=== PATIENT | male | born 1985 | race Caucasian/White ===

== ENCOUNTER 2019-06-19 08:18 | Emergency (ER) | payer OTHER ==
[~2019-06-19] VITALS: Ht 177.8 cm; Wt 163.3 kg
[2019-06-19] MEDS ORDERED: COZAAR50 MG (08:48)
[2019-06-19] MEDS ORDERED: FORTAMET1000 MG (08:49)
[2019-06-19] MEDS ORDERED: KETOROLAC TROME10 MG PO ×2 (10:00)
== END 2019-06-19 10:19 | disposition home or self-care (01) ==
LOC: ER 08:18
DX: S60.212A Contusion of left wrist, initial encounter (principal); W18.39XA Other fall on same level, initial encounter; Y93.89 Activity, other specified; Y92.098 Other place in other non-institutional residence as the place of occurrence of the external cause; Y99.8 Other external cause status

== ENCOUNTER 2021-09-01 07:05 | Outpatient (CLI) | payer OTHER ==
[~2021-09-01 07:05] MED LIST: COZAAR50 MG; FORTAMET1000 MG; KETOROLAC TROME10 MG PO
== END 2021-09-01 18:00 | disposition home or self-care (01) ==
LOC: LAB 07:05
DX: Z20.818 Contact with and (suspected) exposure to other bacterial communicable diseases (principal); Z20.828 Contact with and (suspected) exposure to other viral communicable diseases

== ENCOUNTER 2025-01-03 22:51 | Emergency (ER) | payer OTHER ==
[~2025-01-03] VITALS: Ht 177.8 cm; Wt 163.3 kg
[2025-01-03] MEDS ORDERED: METFORMIN HCL500 MG PO (23:45)
[2025-01-03] MEDS ORDERED: DIOVAN320 MG PO (23:45)
[2025-01-03] MEDS ORDERED: TOPROL XL50 M1 PO (23:46)
[2025-01-04] MEDS ORDERED: KETOROLAC TROMETHAMINE 60 MG VIAL IM STA (02:59)
[2025-01-04] MEDS ORDERED: DEXAMETHASONE 4 MG TABLET PO STA (02:59)
[2025-01-04] MEDS ORDERED: TRAMADOL HCL 50 MG TABLET PO STA (03:00)
[2025-01-04] MEDS ORDERED: DEXAMETHASONE SODIUM PHOSPHATE 4 MG/ML VIAL ONE (03:11)
[2025-01-04] MEDS ORDERED: KETOROLAC TROMETHAMINE 60 MG VIAL IM ONE (03:11)
== END 2025-01-04 03:28 | disposition home or self-care (01) ==
LOC: ER 22:52
DX: S02.5XXA Fracture of tooth (traumatic), initial encounter for closed fracture (principal)